=== PATIENT | female | born 1930 | race Caucasian/White ===

== ENCOUNTER 2018-02-09 10:32 | Emergency (ER) | payer MEDICARE, MEDICAID ==
[2018-02-09 10:45] VITALS: RESP 18
[2018-02-09 11:07] VITALS: BMI 25.7
[2018-02-09] MEDS ORDERED: Sodium Chloride 0.9% 1,000 ML IV STA (11:08)
[2018-02-09] MEDS ORDERED: Iohexol 240 (50 ml) PO ONE (11:08)
[2018-02-09] MEDS ORDERED: Albuterol-Ipratrop 3 mg / 0.5 (3 ml) UD IH STA (11:09)
[2018-02-09] MEDS ORDERED: Albuterol-Ipratrop 3 mg / 0.5 (3 ml) UD INH STA (11:09)
--- NOTE | 2018-02-09 11:25 | ED PDOC ---
HPI: Abdomen Time Seen by Provider: 02/09/18 10:58 Chief Complaint (Provider): Abd pain History Per: Patient History/Exam Limitations: no limitations Onset/Duration Of Symptoms: Days (Mon) Additional Complaint(s): Pt. with abd pain epigastic and left lower. Nausea, no vomit. No diarrhea, weakness, headaches, dizziness, back pain, fever, cough, chest pain. Has dyspnea off and on. No leg pain, dysuria. Is a burning pain. Past Medical History Reviewed: Nursing Documentation, Vital Signs Vital Signs: Last Vital Signs Temp 98.1 F 02/09/18 10:45 Pulse 78 02/09/18 10:45 Resp 18 02/09/18 10:45 BP 144/88 02/09/18 10:45 Pulse Ox 93 L 02/09/18 12:01 - Medical History PMH: HTN, Hypercholesterolemia - Surgical History Other surgeries: thyroid surg - Family History Family History: States: Unknown Family Hx - Living Arrangements Living Arrangements: With Family - Social History Alcohol: None Drugs: Denies - Allergies Allergies/Adverse Reactions: Allergies Allergy/AdvReac Type Severity Reaction Status Date / Time No Known Allergies Allergy Verified 02/09/18 11:07 Review of Systems ROS Statement: Except As Marked, All Systems Reviewed And Found Negative Respiratory: Positive for: Shortness of Breath Gastrointestinal: Positive for: Nausea, Abdominal Pain Physical Exam - Reviewed Nursing Documentation Reviewed: Yes Vital Signs Reviewed: Yes - Physical Exam Appears: Positive for: Non-toxic, No Acute Distress Head Exam: Positive for: ATRAUMATIC, NORMAL INSPECTION, NORMOCEPHALIC Skin: Positive for: Normal Color, Warm, DRY Eye Exam: Positive for: EOMI, Normal appearance, PERRL ENT: Positive for: Normal ENT Inspection Neck: Positive for: Normal, Painless ROM Cardiovascular/Chest: Positive for: Regular Rate, Rhythm, Chest Non Tender Respiratory: Positive for: Decreased Breath Sounds. Negative for: Accessory Muscle Use, Wheezing Gastrointestinal/Abdominal: Positive for: Soft, Tenderness (epigastric and LLQ) Back: Positive for: Normal Inspection. Negative for: L CVA Tenderness, R CVA Tenderness Extremity: Positive for: Normal ROM. Negative for: Tenderness, Pedal Edema Neurologic/Psych: Positive for: Alert, treating and pumping supervisor II-XII, Oriented. Negative for: Motor/Sensory Deficits - Laboratory Results Result Diagrams: 02/09/18 11:42 02/09/18 11:42 Interpretation Of Abn Labs: no acute - ECG ECG: Positive for: Interpreted By Me, Viewed By Me ECG Rhythm: Positive for: Normal QRS, Normal ST Segment, Sinus Rhythm O2 Sat by Pulse Oximetry: 93 - Progress ED Course And Treament: 1412: Stable. Dr. White to fu on ct and re-eval for dyspnea/abd pain. Disposition - Clinical Impression Clinical Impression: Abdominal pain - Patient ED Disposition Is Patient to be Admitted: Transfer of Care - Disposition Disposition: Transfer of Care Disposition Time: 14:15 Condition: FAIR Patient Signed Over To: Patricia White
[2018-02-09] MEDS ORDERED: Albuterol-Ipratrop 3 mg / 0.5 (3 ml) UD ONE (11:49)
[2018-02-09] MEDS ORDERED: Iohexol 240 (50 ml) ONE ×2 (11:51→13:15)
[2018-02-09 12:00] LABS: BASO % 0.5 % (0.0-2.0); EOS # 0.8 K/uL (0.0-0.7); EOS % 10.3 % (0.0-4.0); HEMOGLOBIN 13.6 g/dL (12.0-16.0); LYMPH # 1.8 K/uL (1.0-4.3); LYMPH % 24.7 % (20.0-40.0); MEAN CELL VOLUME 93.5 fl (81.0-99.0); MEAN CORPUSCULAR HEMOGLOBIN 31.1 pg (27.0-31.0); MEAN CORPUSCULAR HGB CONC 33.2 g/dL (33.0-37.0); MEAN PLATELET VOLUME 8.3 fl (7.2-11.7); MONO # 0.7 K/uL (0.0-0.8); MONO % 9.1 % (0.0-10.0); NEUT % 55.4 % (50.0-75.0); NRBC % 0.2 % (0.0-0.0); PROTHROMBIN TIME 11.4 Seconds (9.8-13.1); RBC 4.37 Mil/uL (3.80-5.20); RED CELL DISTRIBUTION WIDTH 14.9 % (11.5-14.5); WHITE BLOOD COUNT 7.3 K/uL (4.8-10.8)
[2018-02-09 12:03] LABS: PARTIAL THROMBOPLASTIN TIME 25.8 Seconds (25.6-37.1)
[2018-02-09 12:10] LABS: ALB/GLOB RATIO 1.2 (1.0-2.1); ALT/SGPT 39 U/L (9-52); AST/SGOT 36 U/L (14-36); BLOOD UREA NITROGEN 14 mg/dl (7-17); CALCIUM 9.3 mg/dL (8.4-10.2); GFR AFRICAN-AMERICAN > 60; GFR NON-AFRICAN AMERICAN > 60; LIPASE 174 U/L (23-300)
[2018-02-09 12:22] LABS: B-TYPE NATRIURETIC PEPTIDE 176 pg/ml (0-900)
--- NOTE | 2018-02-09 14:17 | CARD ---
APPROVED REPORT Date of service: 02/09/2018 <Conclusion> Sinus rhythm with premature atrial complexes Minimal voltage criteria for LVH, may be normal variant Borderline ECG
[2018-02-09] MEDS ORDERED: Iohexol 300 100 ML IJ ONE (14:31)
[2018-02-09] MEDS ORDERED: Sodium Chloride 0.9% 50 ML IV ONE (14:32)
--- NOTE | 2018-02-09 15:11 | ED PDOC ---
- Laboratory Results Result Diagrams: 02/09/18 11:42 02/09/18 11:42 - ECG O2 Sat by Pulse Oximetry: 93 Medical Decision Making Medical Decision Makin.00p - received patient from Dr. Urban. patient here because of abdominal pain. CT done. final report is pending. Patient is also c/o shortness of breath , being addressed with nebs. Will need re-eval. 3.35p - patient is feeling better. CT reviewed. possible early colitis. Given patient's age and abdominal symptoms for 5 days, will start cipro and flagyl. she has an appointment with Dr. Skelton this week on Saturday. Copy of CT result included in discharge packet. Dr. Skelton's service contact. ER gate clerk informed that Dr. Skelton signed out to hospitalist for the weekend. Disposition Doctor Will See Patient In The: Office - Clinical Impression Clinical Impression: Colitis - POA Present On Arrival: None - Disposition Referrals: [facility] [Outside] Chuy Skelton MD [Family Provider] - Disposition: Routine/Home Disposition Time: 15:35 Condition: IMPROVED Prescriptions: Ciprofloxacin HCl [Cipro] 250 mg PO BID #14 tab Metronidazole [Flagyl] 250 mg PO TID #21 tablet Instructions: Acute Abdomen (Belly Pain) Forms: [employer] (Nepali) Print Language: ICELANDIC
--- NOTE | 2018-02-09 15:32 | CT ---
Date of service: 02/09/2018 PROCEDURE: CT Abdomen and Pelvis with contrast HISTORY: abd pain COMPARISON: None. TECHNIQUE: Contrast dose: Radiation dose: Total exam DLP = mGy-cm. This CT exam was performed using one or more of the following dose reduction techniques: Automated exposure control, adjustment of the mA and/or kV according to patient size, and/or use of iterative reconstruction technique. FINDINGS: LOWER THORAX: Unremarkable. LIVER: Unremarkable. No gross lesion or ductal dilatation. GALLBLADDER AND BILE DUCTS: Unremarkable. PANCREAS: Unremarkable. No gross lesion or ductal dilatation. SPLEEN: Unremarkable. ADRENALS: 2.3 centimeter left adrenal mass possibly an adenoma. Recommend confirmation with noncontrast gradient echo MRI. KIDNEYS AND URETERS: Unremarkable. No hydronephrosis. No solid mass. VASCULATURE: Mural thrombus in the descending thoracic aorta. Tortuosity of the abdominal aorta. BOWEL: Diffuse colonic diverticulosis. Mural edema involving the ascending colon suspicious for colitis. APPENDIX: Normal appendix. PERITONEUM: Unremarkable. No free fluid. No free air. LYMPH NODES: Unremarkable. No enlarged lymph nodes. BLADDER: Unremarkable. REPRODUCTIVE: Unremarkable. BONES: No acute fracture. OTHER FINDINGS: None. IMPRESSION: Diffuse colonic diverticulosis. Mural edema involving the ascending colon suspicious for colitis. 2.3 centimeter left adrenal mass possibly an adenoma. Recommend confirmation with noncontrast gradient echo MRI.
[2018-02-09 16:11] VITALS: BP 129/66; PULSE 88; TEMP 97.9; O2SAT 100
== END 2018-02-09 16:13 | disposition home or self-care (01) ==
LOC: H.ER 10:32
DX: K52.9 Noninfective gastroenteritis and colitis, unspecified (principal); E78.00 Pure hypercholesterolemia, unspecified; I10 Essential (primary) hypertension; R06.02 Shortness of breath
CPT/HCPCS: 74177; 80053; 83690; 83880; 84484; 85025; 85610; 85730; 93005; 94640; 96374; 96375; 99284; J1885; J2405; J7030; Q9967

== ENCOUNTER 2018-04-13 13:37 | Observation (INO) | payer MEDICARE, MEDICAID ==
[2018-04-13 13:38] VITALS: BMI 25.7
--- NOTE | 2018-04-13 14:10 | ED PDOC ---
HPI: SOB/CHF/COPD Time Seen by Provider: 04/13/18 13:53 Chief Complaint (Nursing): Shortness Of Breath History Per: Family Onset/Duration Of Symptoms: Days (1) Current Symptoms Are (Timing): Better Severity: Mild Associated Symptoms: Dizziness, Anxiety. denies: Fever, Productive Cough Additional Complaint(s): Brought by family for episode of SOB prior to coming to ED. assoc with cold hands and feet. Denies cough or chest pain. Also c/o dizziness. Denies focal weakness. Past Medical History Vital Signs: Last Vital Signs Temp 97 F L 04/13/18 13:41 Pulse 101 H 04/13/18 13:41 Resp 20 04/13/18 13:41 BP 146/73 04/13/18 13:41 Pulse Ox 97 04/13/18 13:41 - Medical History PMH: HTN, Hypercholesterolemia, Hyperlipidemia - Family History Family History: States: Unknown Family Hx - Home Medications Home Medications: Ambulatory Orders Medication Instructions Recorded Ciprofloxacin HCl [Cipro] 250 mg PO BID #14 tab 02/09/18 Metronidazole [Flagyl] 250 mg PO TID #21 tablet 02/09/18 - Allergies Allergies/Adverse Reactions: Allergies Allergy/AdvReac Type Severity Reaction Status Date / Time No Known Allergies Allergy Verified 04/13/18 13:46 Review of Systems ROS Statement: Except As Marked, All Systems Reviewed And Found Negative Respiratory: Positive for: Shortness of Breath Physical Exam - Reviewed Nursing Documentation Reviewed: Yes Vital Signs Reviewed: Yes - Physical Exam Appears: Positive for: Non-toxic, No Acute Distress Head Exam: Positive for: ATRAUMATIC, NORMAL INSPECTION, NORMOCEPHALIC Skin: Positive for: Normal Color, Warm, DRY Eye Exam: Positive for: EOMI, Normal appearance, PERRL ENT: Positive for: Normal ENT Inspection Neck: Positive for: Normal, Painless ROM Cardiovascular/Chest: Positive for: Regular Rate, Rhythm Respiratory: Positive for: CNT, Normal Breath Sounds Gastrointestinal/Abdominal: Positive for: Normal Exam, Soft Back: Positive for: Normal Inspection Extremity: Positive for: Normal ROM Neurologic/Psych: Positive for: Alert, Oriented - Laboratory Results Result Diagrams: 04/13/18 14:00 04/13/18 14:00 - ECG O2 Sat by Pulse Oximetry: 97 Disposition - Clinical Impression Clinical Impression: Dyspnea - Patient ED Disposition Is Patient to be Admitted: Transfer of Care - Disposition Disposition: Transfer of Care Disposition Time: 14:58 Condition: FAIR Forms: [employer] (Mongolian) Patient Signed Over To: Diamond Roldan
[2018-04-13 14:48] LABS: BASO % 0.5 % (0.0-2.0); EOS # 0.3 K/uL (0.0-0.7); EOS % 4.1 % (0.0-4.0); HEMOGLOBIN 13.3 g/dL (12.0-16.0); LYMPH # 1.8 K/uL (1.0-4.3); LYMPH % 21.5 % (20.0-40.0); MEAN CELL VOLUME 90.9 fl (81.0-99.0); MEAN CORPUSCULAR HEMOGLOBIN 30.7 pg (27.0-31.0); MEAN CORPUSCULAR HGB CONC 33.8 g/dL (33.0-37.0); MEAN PLATELET VOLUME 8.1 fl (7.2-11.7); MONO % 12.5 % (0.0-10.0); NEUT % 61.4 % (50.0-75.0); RBC 4.32 Mil/uL (3.80-5.20); RED CELL DISTRIBUTION WIDTH 15.9 % (11.5-14.5); WHITE BLOOD COUNT 8.2 K/uL (4.8-10.8)
[2018-04-13 14:57] LABS: ALB/GLOB RATIO 1.1 (1.0-2.1); ALBUMIN 3.8 g/dL (3.5-5.0); ALT/SGPT 32 U/L (9-52); AST/SGOT 27 U/L (14-36); BLOOD UREA NITROGEN 7 mg/dl (7-17); CALCIUM 9.3 mg/dL (8.4-10.2); GFR NON-AFRICAN AMERICAN > 60
--- NOTE | 2018-04-13 15:04 | RAD ---
Date of service: 04/13/2018 HISTORY: SOB COMPARISON: No prior. TECHNIQUE: Chest PA and lateral FINDINGS: LUNGS: Frontal and lateral views of the chest were performed. Low lung volumes are noted. Mild interstitial change and mild bibasilar volume loss is suspected. PLEURA: No definite pleural effusion or pneumothorax. CARDIOVASCULAR: Heart is enlarged. Vasculature may be slightly congested. There is atherosclerotic change of the aorta with mild uncoiling. OSSEOUS STRUCTURES: Degenerative changes are seen in the spine without fracture. VISUALIZED UPPER ABDOMEN: Normal. OTHER FINDINGS: None. IMPRESSION: No focal infiltrate. Probable mild bibasilar volume loss. Cardiomegaly. Vasculature may be slightly congested.
--- NOTE | 2018-04-13 15:09 | ED PDOC ---
- Laboratory Results Result Diagrams: 04/13/18 14:00 04/13/18 14:00 - ECG O2 Sat by Pulse Oximetry: 97 (RA) Pulse Ox Interpretation: Normal Medical Decision Making Medical Decision Making: Time: 1500 Patient endorsed to me by Dr. Scott, pending ER workup and reassessment. 1515 Chemistry, CBC, and troponin unremarkable. On reeval pt reports she feels only a little bit better. On further questioning, pt reports dyspnea for about a month, worse today when she was lying down, associated with severe weakness and felt near syncopal at that time. Denies chest pain. Dyspnea unchanged with exertion. Leg pains but no swelling. BNP and ddimer added on to labs. 18:50 CTA chest with IV Contrast IMPRESSION: unremarkable pulmonary embolism protocol CTA of the chest. Scarring lower lungs. Ectatic thoracic aorta. Left adrenal gland mass measuring 3.1 x 2.4 cm. Diverticular changes visualized in left upper colon. 1900 Repeat troponin negative. On reevaluation pt continues to feel better. Pt eager to go home. Stable for dc with f/u PMD in 1 day Scribe Attestation: Documented by Mireya Ye, acting as a scribe for Diamond Roldan MD. Provider Scribe Attestation: All medical record entries made by the Scribe were at my direction and personally dictated by me. I have reviewed the chart and agree that the record accurately reflects my personal performance of the history, physical exam, medical decision making, and the department course for this patient. I have also personally directed, reviewed, and agree with the discharge instructions and disposition. Disposition - Clinical Impression Clinical Impression: Dyspnea, Chest pain - POA Present On Arrival: Falls Or Trauma (risk) - Disposition Disposition: Hospitalized as Observation Patient Disposition Time: 17:00 Condition: IMPROVED
[2018-04-13 16:32] LABS: INR 1.1; PROTHROMBIN TIME 11.7 Seconds (9.8-13.1)
[2018-04-13 16:34] LABS: PARTIAL THROMBOPLASTIN TIME 27.6 Seconds (25.6-37.1)
[2018-04-13] MEDS ORDERED: Iodixanol 320 MG/ML 100 ML BOTTLE IV ONE (17:33)
[2018-04-13] MEDS ORDERED: Sodium Chloride 0.9% 50 ML IV ONE (17:33)
[2018-04-13 19:33] VITALS: BP 139/71; PULSE 76; RESP 18; TEMP 98; O2SAT 97
--- NOTE | 2018-04-14 10:27 | CT ---
Date of service: 04/13/2018 PROCEDURE: CT Chest with contrast (Pulmonary Angiogram) HISTORY: sob COMPARISON: None available. TECHNIQUE: Axial computed tomography images were obtained of the chest in the pulmonary arterial phase of enhancement. Coronal and sagittal reformatted images were created and reviewed. Intravenous contrast dose: Visipaque 320, 95 cc. Radiation dose: Total exam DLP = 360.78 mGy-cm. This CT exam was performed using one or more of the following dose reduction techniques: Automated exposure control, adjustment of the mA and/or kV according to patient size, and/or use of iterative reconstruction technique. FINDINGS: PULMONARY ARTERIES: Unremarkable. No pulmonary embolism. AORTA: Borderline dilated aortic root is seen at 3.9 cm with dilated ascending thoracic aorta measuring up to 4.5 cm taper to a normal caliber at the proximal arch which measures 3 point 6 cm. Distal descending thoracic aortic dilatation resumes measuring 4.4 cm with a 2.9 cm caliber at the diaphragmatic hiatus. [id number] atherosclerosis identified. LUNGS: Unremarkable. No nodule, mass or pulmonary consolidation. PLEURAL SPACES: Unremarkable. No effusion or pneumothorax. HEART: Cardiomegaly. No pulmonary vascular congestion. LYMPH NODES: No significant lymphadenopathy. Shotty paratracheal and aortopulmonary window lymph nodes identified. BONES, CHEST WALL: Unremarkable. No fracture or destructive lesion OTHER FINDINGS: Extensive splenic flexure diverticulosis without diverticulitis incidentally noted. Calcified nodule right thyroid lobe. Benign left adrenal adenoma 2.5 x 2.3 cm with density of -23 Hounsfield units. IMPRESSION: Unremarkable CT pulmonary angiogram. No pulmonary embolus. Nonacute chest CT. Cardiomegaly. No pulmonary vascular congestion. 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 Benign left adrenal adenoma. Concordant preliminary report from [facility], 04/13/2018.
--- NOTE | 2018-04-14 12:57 | CARD ---
APPROVED REPORT Date of service: 04/13/2018 EKG Measurement Heart [id number] <Conclusion> Sinus rhythm with marked sinus arrhythmia Minimal voltage criteria for LVH, may be normal variant Prolonged QT Abnormal ECG
== END 2018-04-13 19:43 | disposition home or self-care (01) ==
LOC: H.ER 13:37 → H.ERHOLD 15:44
DX: R07.9 Chest pain, unspecified (principal); E78.00 Pure hypercholesterolemia, unspecified; E78.5 Hyperlipidemia, unspecified; I10 Essential (primary) hypertension; J44.9 Chronic obstructive pulmonary disease, unspecified; R53.1 Weakness; R55 Syncope and collapse; R42 Dizziness and giddiness; E27.9 Disorder of adrenal gland, unspecified
CPT/HCPCS: 71046; 71275; 80053; 83880; 84484; 85025; 85378; 85610; 85730; 93005; 99284; G0378; Q9967

== ENCOUNTER 2018-04-29 04:18 | Emergency (ER) | payer MEDICARE, MEDICAID ==
[2018-04-29 04:18] VITALS: BMI 25.7
[2018-04-29 04:31] VITALS: RESP 16
--- NOTE | 2018-04-29 05:17 | ED PDOC ---
HPI: Abdomen Time Seen by Provider: 04/29/18 04:23 Chief Complaint (Nursing): Anxiety Chief Complaint (Provider): Abdominal Pain, Anxiety History Per: Patient History/Exam Limitations: no limitations Onset/Duration Of Symptoms: Days (x1) Additional Complaint(s): Sasha Marion, an 87 year old female with past medical history of anxiety and colitis, presents to the emergency department with LLQ abdominal pain onset tonight. Patient was seen here on when she had negative GI workup. altho ugh she was told she had colitis. She states she returned because she still has abdomial pain that woke her up along with anxiety symptoms once she felt the pain. pt requesting that her son at bedside translate for her. Patient denies fever, chest pain, vomiting or urinary symptoms. No further medical complaints. Past Medical History Reviewed: Historical Data, Nursing Documentation, Vital Signs Vital Signs: Last Vital Signs Temp 98.3 F 04/29/18 04:23 Pulse 73 04/29/18 04:23 Resp 16 04/29/18 04:23 BP 144/62 04/29/18 04:23 Pulse Ox 96 04/29/18 04:23 - Medical History PMH: Anemia (IRON DEFICIENCY), Anxiety, Asthma, Gastritis, HTN, Hyp ercholesterolemia, Hyperlipidemia, Hypothyroidism, Osteoporosis Denies: Chronic Kidney Disease Other PMH: Colitis - Surgical History Surgical History: Endoscopy Other surgeries: colonoscopy - Family History Family History: States: Unknown Family Hx - Social History Current smoker - smoking cessation education provided: No Alcohol: None Drugs: Denies - Immunization History Hx Tetanus Toxoid Vaccination: No Hx Influenza Vaccination: No Hx Pneumococcal Vaccination: No - Home Medications Home Medications: Ambulatory Orders Medication Instructions Recorded Iron,Carb/Vit C/Vit B12/Folic 1 tab PO DAILY 04/23/18 [Iron 100 Plus Tablet] RX: Aspirin [Aspirin Chewable] 1 tab PO DAILY 04/23/18 RX: Atorvastatin [Lipitor] 1 tab PO DAILY 04/23/18 RX: Escitalopram [Lexapro] 1 tab PO DAILY 04/23/18 RX: Isosorbide Mononitrate [Imdur] 1 tab PO DAILY 04/23/18 RX: Levothyroxine Sodium 1 tab PO DAILY 04/23/18 RX: Losartan Potassium 1 tab PO DAILY 04/23/18 RX: Tramadol HCl [Ultram] 1 tab PO Q12H 04/24/18 Ciprofloxacin HCl [Cipro] 500 mg PO BID 7 Days tab 04/29/18 Metronidazole [Flagyl] 500 mg PO TID 7 Days tablet 04/29/18 - Allergies Allergies/Adverse Reactions: Allergies Allergy/AdvReac Type Severity Reaction Status Date / Time No Known Allergies Allergy Verified 04/13/18 13:46 Review of Systems ROS Statement: Except As Marked, All Systems Reviewed And Found Negative Constitutional: Negative for: Fever Cardiovascular: Negative for: Chest Pain Gastrointestinal: Positive for: Abdominal Pain. Negative for: Vomiting Genitourinary Female: Negative for: Dysuria, Frequency, Incontinence, Hematuria Psych: Positive for: Anxiety Physical Exam - Reviewed Nursing Documentation Reviewed: Yes Vital Signs Reviewed: Yes - Physical Exam Appears: Positive for: Well, Non-toxic, No Acute Distress Head Exam: Positive for: ATRAUMATIC, NORMAL INSPECTION, NORMOCEPHALIC Skin: Positive for: Normal Color, Warm, DRY Eye Exam: Positive for: EOMI, Normal appearance, PERRL ENT: Positive for: Normal ENT Inspection Neck: Positive for: Normal, Painless ROM Cardiovascular/Chest: Positive for: Regular Rate, Rhythm Respiratory: Positive for: CNT, Normal Breath Sounds Gastrointestinal/Abdominal: Positive for: Bowel Sounds, Soft, Tenderness (llq). Negative for: Guarding, Rebound Back: Positive for: Normal Inspection Extremity: Positive for: Normal ROM Neurologic/Psych: Positive for: Alert, Oriented - Laboratory Results Result Diagrams: 04/29/18 05:48 04/29/18 05:48 - ECG O2 Sat by Pulse Oximetry: 96 (RA) Pulse Ox Interpretation: Normal Medical Decision Making Medical Decision Making: Time: 04:23 Initial Impression: abdominal pain rule out diverticulitis, intraabdominal abscess Initial Plan: --Ct abd/pelvis --CMP --CBC w/ differential --CXR portable [address] urban pending work up and final dispo Scribe Attestation: Documented by Rafaela Richards, acting as a scribe for Benson Moreno MD. Provider Scribe Attestation: All medical record entries made by the Scribe were at my direction and personally dictated by me. I have reviewed the chart and agree that the record accurately reflects my personal performance of the history, physical exam, [facility] decision making, and the department course for this patient. I have also personally directed, reviewed, and agree with the discharge instructions and disposition. Disposition - Clinical Impression Clinical Impression: Diverticulitis - Patient ED Disposition Is Patient to be Admitted: Transfer of Care - Disposition Referrals: [facility] [Outside] - 04/30/18 Paco Heck MD [Medical Doctor] - 04/30/18 Disposition: Transfer of Care Disposition Time: 07:00 Condition: STABLE Additional Instructions: Return if not better in 3 days. Prescriptions: Ciprofloxacin HCl [Cipro] 500 mg PO BID 7 Days tab Metronidazole [Flagyl] 500 mg PO TID 7 Days tablet Instructions: Diverticulitis Print Language: TURKISH Patient Signed Over To: Mac Urban
[2018-04-29 05:55] LABS: BASO # 0.1 K/uL (0.0-0.2); BASO % 1.1 % (0.0-2.0); EOS # 0.5 K/uL (0.0-0.7); EOS % 4.9 % (0.0-4.0); HEMOGLOBIN 13.2 g/dL (12.0-16.0); LYMPH # 1.5 K/uL (1.0-4.3); LYMPH % 14.4 % (20.0-40.0); MEAN CELL VOLUME 89.9 fl (81.0-99.0); MEAN CORPUSCULAR HEMOGLOBIN 31.1 pg (27.0-31.0); MEAN CORPUSCULAR HGB CONC 34.5 g/dL (33.0-37.0); MEAN PLATELET VOLUME 7.6 fl (7.2-11.7); MONO # 0.9 K/uL (0.0-0.8); NEUT # 7.2 K/uL (1.8-7.0); NEUT % 70.6 % (50.0-75.0); RBC 4.24 Mil/uL (3.80-5.20); RED CELL DISTRIBUTION WIDTH 15.2 % (11.5-14.5); WHITE BLOOD COUNT 10.2 K/uL (4.8-10.8)
[2018-04-29 06:26] LABS: ALBUMIN 3.6 g/dL (3.5-5.0); BLOOD UREA NITROGEN 9 mg/dl (7-17); CALCIUM 9.2 mg/dL (8.4-10.2); GFR NON-AFRICAN AMERICAN > 60
[2018-04-29 06:27] LABS: ALT/SGPT 27 U/L (9-52); AST/SGOT 25 U/L (14-36)
--- NOTE | 2018-04-29 06:39 | ED PDOC ---
- Laboratory Results Result Diagrams: 04/29/18 05:48 04/29/18 05:48 - ECG O2 Sat by Pulse Oximetry: 96 (RA) Medical Decision Making Medical Decision Makin -patient signed out to Mac Urban MD pending CT to rule out diverticulitis Disposition - Disposition Forms: [employer] (Frisian)
--- NOTE | 2018-04-29 07:18 | ED PDOC ---
- Laboratory Results Result Diagrams: 04/29/18 05:48 04/29/18 05:48 Interpretation Of Abn Labs: no acute - ECG O2 Sat by Pulse Oximetry: 96 (RA) Pulse Ox Interpretation: Normal - CT Scan/US ct Other Rad Studies (CT/US): Read By Radiologist Other Rad Interpretation: colitis/diverticulitis - Progress ED Course And Treament: 850: In no pain. AAOx3. Tolerated PO. Fu with pcp and GI. Medical Decision Making Medical Decision Making: Time: 0700 Patient endorsed to me by Dr. Moreno, pending Abdomen/Pelvis CT. Scribe Attestation: Documented by Mireya Ye, acting as a scribe for Mac Urban MD. Provider Scribe Attestation: All medical record entries made by the Scribe were at my direction and personally dictated by me. I have reviewed the chart and agree that the record accurately reflects my personal performance of the history, physical exam, medical decision making, and the department course for this patient. I have also personally directed, reviewed, and agree with the discharge instructions and disposition. Disposition - Clinical Impression Clinical Impression: Diverticulitis - POA Present On Arrival: None - Disposition Referrals: Paco Heck MD [Medical Doctor] - 04/30/18 [facility] [Outside] - 04/30/18 Disposition: Routine/Home Disposition Time: 08:55 Condition: STABLE Additional Instructions: Return if not better in 3 days. Prescriptions: Ciprofloxacin HCl [Cipro] 500 mg PO BID 7 Days tab Metronidazole [Flagyl] 500 mg PO TID 7 Days tablet Instructions: Diverticulitis Print Language: BENGALI
[2018-04-29] MEDS ORDERED: Sodium Chloride 0.9% 50 ML IV ONE (07:27)
[2018-04-29] MEDS ORDERED: Iohexol 300 100 ML IJ ONE (07:27)
[2018-04-29] MEDS: Sodium Chloride 0.9% 1,000 ML IV STA (08:41)
--- NOTE | 2018-04-29 09:57 | RAD ---
Date of service: 04/29/2018 HISTORY: pain COMPARISON: 04/13/2018 FINDINGS: LUNGS: The lungs are well inflated. There is discoid atelectasis in both lower lobes. PLEURA: No pleural effusions or pneumothorax. CARDIOVASCULAR: There is mild cardiomegaly. Atherosclerotic aortic arch calcifications are present. OSSEOUS STRUCTURES: Within normal limits for the patient's age. VISUALIZED UPPER ABDOMEN: Normal. OTHER FINDINGS: None. IMPRESSION: No active pulmonary disease.
[2018-04-29 10:38] VITALS: BP 137/82; PULSE 76; TEMP 98.6
--- NOTE | 2018-04-29 12:22 | CT ---
Date of service: 04/29/2018 PROCEDURE: CT Abdomen and Pelvis with contrast HISTORY: llq abd pain COMPARISON: 02/09/2018 TECHNIQUE: Contrast dose: 100 mL Omnipaque 300 Radiation dose: Total exam DLP = 749.71 mGy-cm. This CT exam was performed using one or more of the following dose reduction techniques: Automated exposure control, adjustment of the mA and/or kV according to patient size, and/or use of iterative reconstruction technique. FINDINGS: LOWER THORAX: Minimal linear scar/atelectasis left lower lobe. LIVER: Unremarkable. No gross lesion or ductal dilatation. GALLBLADDER AND BILE DUCTS: Unremarkable. PANCREAS: Unremarkable. No gross lesion or ductal dilatation. SPLEEN: Unremarkable. ADRENALS: Stable 2.8 cm left adrenal mass. Consider further evaluation with non gadolinium enhanced magnetic resonance imaging. No right adrenal mass. KIDNEYS AND URETERS: Unremarkable. No hydronephrosis. No solid mass. VASCULATURE: Unremarkable. No aortic aneurysm. There is atherosclerotic calcification of the abdominal aorta. BOWEL: There is multifocal acute diverticulitis. There is focal diverticulitis in a short segment of the sigmoid colon. There is more extensive diverticulitis that the descending/sigmoid junction and possible 3rd and 4th sites of focal short segment diverticulitis in the descending colon. The remainder of the colon is unremarkable. There is no bowel obstruction. There is marked mural thickening seen at the descending/sigmoid junction (series 3, image 128 and 129). Likely due to diverticulitis. Follow-up is advised to exclude underlying neoplasm. APPENDIX: Normal appendix. PERITONEUM: Unremarkable. No free fluid. No free air. LYMPH NODES: Unremarkable. No enlarged lymph nodes. BLADDER: Unremarkable. REPRODUCTIVE: Normal uterus BONES: No acute fracture. Lumbar dextroscoliosis. OTHER FINDINGS: None. IMPRESSION: Multifocal acute diverticulitis of the descending and sigmoid colon. No abscess. No pneumoperitoneum part. Marked focal mural thickening at the descending/sigmoid junction. Follow up to exclude underlying neoplasm. Incidental stable left adrenal mass, 2.8 cm. Further evaluation with non gadolinium enhanced magnetic resonance imaging is advised.
[2018-04-29 20:23] VITALS: O2SAT 96
== END 2018-04-29 10:50 | disposition home or self-care (01) ==
LOC: H.ER 04:18
DX: K57.32 Diverticulitis of large intestine without perforation or abscess without bleeding (principal); F41.9 Anxiety disorder, unspecified; E03.9 Hypothyroidism, unspecified; E78.00 Pure hypercholesterolemia, unspecified; I10 Essential (primary) hypertension
CPT/HCPCS: 71045; 74177; 80053; 85025; 96374; 99283; J2270; J7030; Q9967